=== PATIENT | female | born 1990 | race Caucasian/White ===

== ENCOUNTER → 2017-10-20 14:51 | Outpatient (CLI) | payer OTHER, SELFPAY ==
[2017-10-20 18:14] LABS: Basophils # 0.1 K/mm3 (0-0.2); Basophils % 0.8 % (0.1-2.0); Eosinophils # 0.2 K/mm3 (0.0-0.4); Eosinophils % 1.7 % (0.1-12.0); Hematocrit 47.3 % (37.0-47.0); Hemoglobin 14.7 g/dL (12.2-16.2); Lymphocytes # 2.3 K/mm3 (0.7-4.5); Lymphocytes % 26.6 K/mm3 (10-50); Mean Corpuscular Hemoglobin 25.2 pg (27.0-31.2); Mean Corpuscular Volume 81.2 fl (81-99); Monocytes # 0.5 K/mm3 (0.1-1.0); Monocytes % 5.6 % (1.7-9.3); Neutrophils # 5.7 K/mm3 (1.8-7.8); Neutrophils % 65.3 % (37.0-80.0); Platelet Count 358 K/mm3 (142-424); Red Blood Count 5.83 M/mm3 (4.20-5.40); Red Cell Distribution Width 13.8 % (11.5-17.5); White Blood Count 8.8 K/mm3 (4.8-10.8)
[2017-10-20 18:35] LABS: Alanine Aminotransferase 25 U/L (12-78); Albumin Level 3.9 gm/dL (3.4-5.0); Albumin/Globulin Ratio 0.9 (1.1-1.8); Alkaline Phosphatase 96 U/L (46-116); Anion Gap 13.2 mEq/L (5-15); Aspartate Amino Transferase 16 U/L (15-37); Bilirubin,Total 0.2 mg/dL (0.2-1.0); Blood Urea Nitrogen 15 mg/dL (7-18); Calcium 9.5 mg/dL (8.5-10.1); Carbon Dioxide 26 mmol/L (21.0-32.0); Chloride 104 mmol/L (98-107); Chol/HDL Ratio 3.2 (1-3.5); Cholesterol 142 mg/dL (140-200); Creatinine,Serum 0.73 mg/dL (0.55-1.02); Estimated Glomerular Filt Rate 97 ml/min (>60); Free T4 (Free Thyroxine) 1.02 ng/dl (0.76-1.46); GFR (African American) 118 ML/MIN (>60); Globulin 4.2 gm/dl (1.3-3.2); Glucose 99 mg/dL (74-106); HDL Cholesterol 45 mg/dL (29-89); LDL Cholesterol 72 mg/dL (0-130); Potassium 4.2 mmoL/L (3.5-5.1); Sodium 139 mmol/L (136-145); Thyroid Stimulating Hormone 3.87 uIU/ml (0.358-3.740); Total Protein,Serum 8.1 gm/dL (6.4-8.2); Triglycerides 124 mg/dL (30-200); VLDL Cholesterol 25 mg/dL (0-40)
== END ==
PROVIDERS: Visit Provider Emergency Medicine
DX: R68.89 Other general symptoms and signs (principal)
CPT/HCPCS: 80053; 80061; 84439; 84443; 85025

== ENCOUNTER 2021-02-01 19:22 | Emergency (ER) | payer OTHER, SELFPAY ==
[2021-02-01 19:39] VITALS: BMI 41.5
--- NOTE | 2021-02-01 19:39 | XR_ITS ---
PROCEDURE INFORMATION: Exam: XR Left Knee Exam date and time: 02/01/2021 7:39 PM Age: 30 years old Clinical indication: Pain; Knee; Left; Additional info: Injury TECHNIQUE: Imaging protocol: XR Left knee. Views: 3 views. COMPARISON: CR [id number] FOOT-LT-3 VIEWS 11/28/2016 11:38 PM FINDINGS: Bones/joints: No acute fracture or dislocation. The 3 knee compartments are preserved. Normal bone mineralization. Soft tissues: No effusion or soft tissue swelling. IMPRESSION: No acute findings.
[2021-02-01 19:50] VITALS: RESP 20; O2SAT 98; BMI 41.6
--- NOTE | 2021-02-01 20:54 | HMH.EDUTC ---
[facility] Disposition Clinical Impression: Left knee sprain Qualifiers: Encounter type: initial encounter Involved ligament of knee: unspecified ligament Qualified Code(s): S83.92XA - Sprain of unspecified site of left knee, initial encounter Disposition: Home, Self-Care Condition on Discharge: Good Instructions: How to Use Crutches, Knee Sprain, DI for Knee Sprain, How to Use a Knee Immobilizer Additional Instructions: Rest the extremity, apply ice for 15 minutes as tolerated three or four times per day, Elevate the extremity as tolerated while you are resting. Take ibuprofen for pain. I sent in a prescription to your pharmacy. Follow up with Dr. Khanna (orthopedics). Sometimes there can be fractures that don't show up well on the first set of x-rays. So, you should follow up if you continue to have symptoms. I put in a referral but you need to call his office and schedule an appointment. Follow up with your regular doctor. GO TO THE ER FOR ANY WORSENING SYMPTOMS Prescriptions: Ibuprofen [Ibuprofen 800mg Tablet] 800 mg PO Q8HP PRN #30 tab PRN Reason: Moderate Pain Transmission Status: Received by [id number] Referrals: Lola Conn [Primary Care Provider] - Rodger Khanna MD [Staff Physician] - Time of Disposition: 21:39 Medical Decision Making - Medical Records Medical records reviewed: No: I reviewed the patient's medical records. - Wu Inquiry Pt receiving controlled substance: No Vital Signs: 02/01/21 19:50 02/01/21 21:33 Temperature 98.0 F Pulse Rate 80 Respiratory Rate 20 20 Blood Pressure 132/85 02 Sat by Pulse Oximetry 98 Oxygen Delivery Method Room Air [facility] HPI - General Stated complaint: AO 02/01@16:30 injured L leg Time Seen by Provider: 02/01/21 20:54 Mode of Arrival: Ambulatory Source of Information: Patient Limitations: No Limitations Description of Symptoms (Recalled from Triage Doc. by RN): PATIENT C/O LEFT KNEE PAIN AFTER FALLING APPROX 30 MINUTES [employer] Symptoms (Recalled from RN notes): No Resp Symptoms (Recalled from RN notes): No Skin Symptoms (Recalled from RN notes): No MS Symptoms (Recalled from RN notes): Yes Functional Status (Recalled from RN notes): WNL - History of Present Illness Provider Complaint: SHE C/O LEFT KNEE PAIN. SHE STATES THAT IT BEGAN AFTER FALLING APPROX 30 MINUTES BEFORE HER ARRIVAL HERE. - Related Data Home Medications Medication Instructions Recorded Confirmed metformin 500 mg tablet,extended PO 30 Days #90 tab 06/11/18 03/15/19 release 24 hr Previous Rx's Medication Instructions Recorded bupropion HCl 150 mg tablet,12 hr 150 mg PO BID #180 each 10/15/18 sustained-release phentermine 37.5 mg tablet 37.5 mg PO DAILY #30 tab 01/31/19 bupropion HCl 75 mg tablet 75 mg PO BID #60 tab 03/15/19 clonazepam 0.5 mg tablet 0.5 mg PO DAILY #30 tab 03/15/19 Ibuprofen [Ibuprofen 800mg 800 mg PO Q8HP PRN #30 tab 02/01/21 Tablet] Allergies Allergy/AdvReac Type Severity Reaction Status Date / Time No Known Allergies Allergy Verified 03/15/19 15:16 - Worker's Comp Is this a Worker's Comp case?: No [facility] History - Hepatitis A Screen Drug use history?: No High risk sexual behaviors?: No History of sexually transmitted infection?: No Currently employed?: No Childcare worker?: No Do you have indoor plumbing?: Yes Do you have electricity?: Yes Attestation statement:: This patient has been screened for Hepatitis A risk factors. I have reviewed the patient's past medical history: Yes Medical History: Reports:: Anxiety, Depression Comment: States that she produces insulin at a high rate Other Surgeries: Yes: No Previous Surgery Amputation: No Fractures: Yes Comment: RIGHT WRIST - Social History Smoking Status: Never smoker Alcohol Intake: never Substance Use Type: denies use Occupational Status: unemployed Housing: house Household Members: family - Psychiatric History [facility]
[2021-02-01 21:33] VITALS: BP 132/85; PULSE 80; RESP 20; TEMP 36.7; O2SAT 98
== END 2021-02-01 21:40 | disposition home or self-care (01) ==
PROVIDERS: Emergency Provider Nurse Practitioner Family; PCP Family Medicine
DX: S83.92XA Sprain of unspecified site of left knee, initial encounter (principal); W01.0XXA Fall on same level from slipping, tripping and stumbling without subsequent striking against object, initial encounter; Y92.019 Unspecified place in single-family (private) house as the place of occurrence of the external cause; F41.8 Other specified anxiety disorders
CPT/HCPCS: 29505; 73562; 99202; G0463